=== PATIENT | male | born 1940 | race Caucasian/White ===

== ENCOUNTER → 2019-04-01 | Outpatient (CLI) | payer OTHER, BC ==
[~2019-04-01] VITALS: Ht 177.8 cm; Wt 97.5 kg
[~2019-04-01] MED LIST: ACTOS 45 MG45 MG PO; ADVAIR 250-501 EACH INH; AMLODIPINE BESY10 MG PO; ARICEPT23 MG PO; ASPIR 8181 MG PO; ASTEPRO205.5 MCG/ NASAL; AZELASTINE137 MCG/0. NASAL; BACLOFEN 10MG T10 MG PO; CRESTOR20 MG PO; DICLEGIS DR 101 EACH PO; FISH OIL 1,001000 M2 PO; FLOMAX0.4 MG PO; FLONASE 0.05%50 MCG NASAL; GLUCAGEN1 MG/1 ML INJECTION; GLUCOPHAGE1000 MG PO; HUMALOG100 UNIT/1 SUBQ; LANTUS100 UNIT/M SUBQ; LISINOPRIL-HCT1 EAC2 PO; PROSCAR 5MG TABL5 MG PO; TRAVATAN Z2.5 ML OPHTHALMIC; VICTOZA0.6 MG/0.1 SUBQ; VOLTAREN GEL 1100 G2 TOP
--- NOTE | ~2019-04-01 | HPC ---
[facility] [address] [address] PAIN MANAGEMENT CONSULTATION Name: MIKE LOCK Room #: REG [facility] MMarisabel.#: [id number] Admission: 04/01/19 ������������������ Attend Phys: Edward De Santiago DO Discharge: ������������������ Date of : 40 Report #: [id number] THIS REPORT FOR: //name// CC: Mary Anne Velasco DATE OF SERVICE: 04/01/2019 REFERRING PHYSICIAN: FRANKY Cruz. CHIEF COMPLAINT: Low back pain, bilateral lower extremity pain and paresthesias. HISTORY OF PRESENT ILLNESS: As you know, the patient is a 78-year-old male referred to our clinic by his neurosurgery team for evaluation for lumbar radiculopathy. The patient indicates his pain began 10/29/1979. He has been "just dealing with it." He recently has had an exacerbation of symptoms which sent the patient to evaluation with nurse practitioner, Mary Anne Valdes at [facility]. He was seen in consultation, advised to trial a lumbar epidural injection under fluoroscopic guidance with our clinic. He was subsequently referred to trial that today. He indicates today his pain is continuous, describes the pain as aching, places current pain score 2-3/10, daily average of 2-3/10, worst pain has been 7-8/10. He states that pain is exacerbated with "longer durations on his feet." His pain improves with Aleve, utilizing a recliner, placing heat pads on his back and lying down. He has been referred to our service to discuss possible lumbar epidural injection under fluoroscopic guidance to address lumbar radiculopathy. PAST MEDICAL HISTORY: 1. Diabetes mellitus type 2. 2. Bleeding tendencies. 3. Asthma. 4. Hypertension. 5. Degenerative joint disease. 6. Osteoarthritis. 7. History of bladder cancer. 8. Dyslipidemia. 9. Seasonal allergies. 10. Memory issues. PAST SURGICAL HISTORY: 1. Pelvic surgery in 1979. 2. Surgeries for bladder cancer in 1997 through 1999. 3. Herniated disk repair, 2016. [facility] [address] [place] [address] PAIN MANAGEMENT CONSULTATION Name: MIKE LOCK Room #: REG ELIZABETH Anderson#: [id number] Admission: 04/01/19 ������������������ Attend Phys: Edward De Santiago DO Discharge: ������������������ Date of : 40 Report #: [id number] 4. Cataract surgery. SOCIAL HISTORY: The patient denies tobacco, IV or illicit drug use. He admits to occasional alcohol beverage. 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 He is not receiving workmen's compensation, nor is he trying to obtain disability benefits. He is unaccompanied at today's visit. REVIEW OF SYSTEMS: Positive for weight gain, wearing corrective eyewear, cataracts, hearing loss with tinnitus, sinus problems, sore throat, voice changes, shortness of breath with walking or lying flat, frequent coughs, asthma, wheezing, frequent urination, nocturia, change of force or stream urination, incontinence and dribbling to urine, hair and nail changes, varicose vein, numbness and tingling sensations, tremors, diabetes mellitus type 2 insulin-dependent, excessiv thirst and urination, low back pain that is chronic in nature. All other review of systems negative per 12-point review of systems other than those listed in history of present illness. Pain impact score of 7/70 indicating minimal interference of daily activities secondary to pain. ALLERGIES: QUININE. CURRENT MEDICATIONS: Rosuvastatin, GlucaGen, diclofenac, insulin, Victoza, metformin, aspirin, pioglitazone, amlodipine, azelastine, Advair, Travatan, fluticasone, benazepril, tamsulosin, finasteride, omega-3 fish oil. IMAGING: MRI lumbar spine shows L1-L2 with focal left paramedian disk osteophyte complex flattening the left thecal sac. No central canal stenosis. L2-L3, diffuse annular bulge and facet arthropathy, mild spinal stenosis. L3-L4, diffuse annular disk bulge, lateral foraminal narrowing on the right with compression of the exiting L3 nerve root, mild to moderate central canal stenosis. L4-L5, bilateral facet arthrosis, buckling of ligamentum flavum, diffuse annular disk bulge, severe spinal stenosis. L5-S1, there is no central canal stenosis or foraminal narrowing. PQRS: The patient has known arthritic changes of the lumbar spine, bilateral hips and knees. No rheumatoid arthritis. He is placing pain intensity 2-3/10 while seated, 7-8/10 while walking and ambulating. He is not a fall risk, has not had a fall in the last 3 months. He is not on blood thinners. He is treated for hypertension. He is not on chronic opioids, has a low opiate addiction potential. His pain impact score is 7/70, minimal interference of daily activities secondary to pain. PHYSICAL EXAMINATION: VITAL SIGNS: Blood pressure 165/64, pulse 92, respiratory rate 16 and unlabored. The patient is 97% on room air. Height 5 feet 10 inches tall, [facility] [address] [place] [address] PAIN MANAGEMENT CONSULTATION Name: MIKE LOCK Room #: REG CLJan Anderson#: [id number] Admission: 04/01/19 ������������������ Attend Phys: Edward De Santiago DO Discharge: ������������������ Date of : 40 Report #: [id number] weight 215 pounds, BMI calculated 30.8. GENERAL: Well-developed, well-nourished, well-hydrated 78-year-old male, appearing stated age, placing current pain score at 2-8/10 depending on activity. HEENT: Normocephalic, atraumatic. Pupils equal, round, reactive to light. Extraocular muscles are intact. Sclerae nonicteric without injection. NEUROLOGIC: Cranial nerves 2-12 grossly intact. LUNGS: Clear. No wheeze, rhonchi or rales. CARDIOVASCULAR: Regular. No appreciable gallop or rub. ABDOMEN: Soft, nontender, nondistended. EXTREMITIES: No clubbing, no cyanosis, no edema. MUSCULOSKELETAL: The patient has got normal gait and tandem walk. He has no focal loss of sensation. He is intact to light touch from L1 through S2 dermatomes. Seated straight leg raising negative. Supine straight leg raising negative. KRISTIAN'S test negative. Modified Gaenslen's positive for axial low back pain. Ankle clonus negative. Babinski is negative. Muscle bulk and tone is symmetrical in comparing left lower extremity to right. He does have some decreased reflexes in the lower extremities, but they are symmetrical at patella and Achilles. ASSESSMENT: 1. Severe central canal stenosis. 2. Displacement of lumbar intervertebral disk with radiculopathy. 3. Chronic lumbar radiculopathy. 4. Lumbosacral spondylosis with radiculopathy. 5. Neuroforaminal stenosis of lumbar spine. 6. Facet arthropathy of the lumbar spine. 7. Chronic intractable pain. PLAN: 1. Based on today's physical exam and history the patient has provided, the description the patient uses in regards to pain as well as the location of symptoms, likely source of the patient's pain is lumbar radiculopathy. Based on his recent MRI, the lumbar radicular symptoms were secondary to severe spinal canal stenosis to the L4-L5 level. The patient has been advised of treatment options in the past and we have reiterated those today, the following was discussed with the patient. We discussed the treatment options include physical therapy, stretching exercise, core strengthening. We discussed medication management, utilizing a neuropathic pain medication and consistent nonsteroidal anti-inflammatory. We discussed lumbar epidural injection under fluoroscopic guidance for which the patient was referred to our clinic. We discussed spinal cord stimulator therapy and ultimately surgical decompression. After reviewing the risks and benefits of all proposed treatment options, the patient chose to move forward with a lumbar epidural [place] [address] PAIN MANAGEMENT CONSULTATION Name: CARLLEIMIKE Room #: REG LEIZABETH Anderson#: [id number] Admission: 04/01/19 ������������������ Attend Phys: Edward De Santiago DO Discharge: ������������������ Date of : 40 Report #: [id number] 2. The patient has been advised the risks and benefits of a lumbar epidural injection. These risks include but are not necessarily limited to bleeding, bruising, infection, worsening of pain, no relief of pain, temporary or permanent muscle weakness, temporary or permanent nerve damage, possible paralysis, post-dural puncture headache and . The patient states he understood and wished to proceed. 3. No medication changes made at today's visit. The patient will continue current medical therapy as previously prescribed. 4. We will see the patient back in followup visit in approximately 1 month. At that time, review the efficacy of today's epidural injection and determine if next in the series might be recommended. 5. We wish to thank nurse practitioner, Wendy Valdes, for the referral of the patient to our clinic. We will keep you apprised of his response to treatment as we address lumbar radicular symptoms secondary to spinal stenosis. Again, we wish to thank you for the opportunity to see the patient in consultation. ��������������������������������������������� ���������������������������������������� By: ��������������������������������������������� [id number] Edward De Santiago DO /nt
--- NOTE | ~2019-04-01 | P ---
[facility] [place] [address] [place] [address] PROCEDURE REPORT Name: MIKE LOCK Room #: REG Jan MMarisabel.#: [id number] Admission: 04/01/19 ������������������ Attend Phys: Edward De Santiago DO Discharge: ������������������ Date of : 40 Report #: [id number] THIS REPORT FOR: //name// CC: Mary Anne Velasco DATE OF SERVICE: 04/01/2019 PROCEDURE NOTE DESCRIPTION OF PROCEDURE: L5-S1 paramedian epidural steroid injection under fluoroscopic guidance. After obtaining written consent, the patient was taken back to fluoroscopy suite, placed in prone position with pillow under abdomen to decrease lumbar lordosis. Skin overlying lumbosacral area was then prepped and draped in aseptic fashion. The L5-S1 vertebral interspace identified by AP fluoroscopy. Skin and subcutaneous tissue overlying target site of injection anesthetized with 3 mL of 1% lidocaine. A 20-gauge 3-1/2 inch Tuohy needle advanced under fluoroscopic guidance towards the epidural space using a paramedian approach. Epidural space identified using loss of resistance to air technique. After negative aspiration for heme or cerebrospinal fluid, 1 mL of Omnipaque injected. Lumbar epidurogram confirmed using both AP and lateral fluoroscopy. After negative aspiration for heme or cerebrospinal fluid, 5 mL of a solution containing 2 mL 40 mg per mL, 80 mg total triamcinolone along with 3 mL lidocaine 1% injected slowly. Needle then retracted approximately half way, flushed with 1 mL of 1% lidocaine and then removed. Sterile bandage placed over injection site. No new motor deficits present in lower extremity following procedure. The patient tolerated procedure well, carefully escorted to recovery room in stable condition. No apparent complications. After meeting discharge criteria, the patient was discharged home. ��������������������������������������������� ���������������������������������������� By: ��������������������������������������������� [id number] Edward De Santiago DO /nt
[2019-04-01 11:26] VITALS: BP 165/64
--- NOTE | 2019-04-01 11:27 | NUR ---
Pain Clinic Assessment: 1. History of Osteoarthritis: Left Lower Extremity Right Lower Extremity SPINAL History of Rheumatoid Arthritis: Not Applicable 2. Height: 5 ft. 10 in. 177.8 cm. Weight: 215.0 lb. oz. 97.524 kg. Patient's BMI: 30.8 3. Vital Signs: BP: 165/64 Pulse: 92 Resp: 16 Temp: 02 Sat: 97 ECG Mon: 4. Pain Intensity: 2-3 SITTING 7-8 ON FEET 5. Fall Risk: Dizziness: N Needs help standing or walking: N Fallen in the last 3 months: N Fall risk comments: 6. Patient on Blood Thinner: None 7. History of Hypertension: Y 8. Opioid Therapy greater than 6 weeks: N Opiate Contract Signed: 9. Risk Assessment Tool Provided: 10. Functional Assessment Tool: 11. Recreational Drug Use: Never Drug Type: Tobacco Use: Never Smoker Tobacco Type: Amount or Packs/day: How Many Years: Alcohol Use: Yes Frequency: Special Occasions Quant: 1
== END | disposition home or self-care (01) ==
LOC: PAIN 06:44
DX: M51.16 Intervertebral disc disorders with radiculopathy, lumbar region (principal); M48.061 Spinal stenosis, lumbar region without neurogenic claudication; M47.27 Other spondylosis with radiculopathy, lumbosacral region; M47.26 Other spondylosis with radiculopathy, lumbar region; G89.29 Other chronic pain; I10 Essential (primary) hypertension; E11.9 Type 2 diabetes mellitus without complications; J45.909 Unspecified asthma, uncomplicated; M19.90 Unspecified osteoarthritis, unspecified site; E78.5 Hyperlipidemia, unspecified; Z98.890 Other specified postprocedural states; Z79.899 Other long term (current) drug therapy; Z88.8 Allergy status to other drugs, medicaments and biological substances

== ENCOUNTER → 2019-07-01 | Outpatient (CLI) | payer OTHER, BC ==
[~2019-07-01] VITALS: Ht 177.8 cm; Wt 98.0 kg
[~2019-07-01] MED LIST changes: +ALLEGRA ALLERG180 MG PO; +AUGMENTIN 875-1 EACH PO; +IPRATROPIUM BRO30 ML NASAL; +MUCINEX D ER 11 EACH PO
[2019-07-01 10:09] VITALS: BP 156/73
--- NOTE | 2019-07-01 10:24 | NUR ---
Pain Clinic Assessment: 1. History of Osteoarthritis: B/L KNEES SPINAL B/L ANKLES History of Rheumatoid Arthritis: Not Applicable 2. Height: 5 ft. 10 in. 177.8 cm. Weight: 216.0 lb. oz. 97.977 kg. Patient's BMI: 31.0 3. Vital Signs: BP: 156/73 Pulse: 65 Resp: 16 Temp: 02 Sat: 98 ECG Mon: 4. Pain Intensity: 2-3 TODAY, 4-BOTHERSOME 5. Fall Risk: Dizziness: Y Needs help standing or walking: N Fallen in the last 3 months: N Fall risk comments: 6. Patient on Blood Thinner: None 7. History of Hypertension: Y 8. Opioid Therapy greater than 6 weeks: N Opiate Contract Signed: 9. Risk Assessment Tool Provided: 10. Functional Assessment Tool: 11. Recreational Drug Use: Never Drug Type: Tobacco Use: Never Smoker Tobacco Type: Amount or Packs/day: How Many Years: Alcohol Use: Yes Frequency: Quant:
--- NOTE | 2019-07-02 12:55 | HPC ---
[facility] [place] [address] [place] [address] PAIN MANAGEMENT CONSULTATION Name: MIKE LOCK Room #: REG Jan Garza.#: [id number] Admission: 07/01/19 Attend Phys: Edward De Santiago DO Discharge: Date of : 40 Report #: [id number] THIS REPORT FOR: //name// CC: KARSON Velasco MD DATE OF SERVICE: 07/01/2019 REFERRING NURSE PRACTITIONER: Karson Valdes APRN PRIMARY CARE PROVIDER: Kaylen Velasco MD CHIEF COMPLAINT: Low back pain, bilateral lower extremity pain with paresthesias. HISTORY OF PRESENT ILLNESS: As you know, the patient is a 79-year-old male referred to our clinic by his neurosurgery team for evaluation of lumbar radiculopathy. He was seen in consultation per the request on 04/01/2019, underwent a lumbar epidural injection under fluoroscopic guidance with good benefit. He returns today in followup visit stating a recurrence of pain now at a level of 2-3/10, but on some days up to 10/30. He reports with the previous epidural injection improvement of greater than 50%, lasting for at least 11 weeks. He returns today in followup visit stating he has contacted his neurosurgery team to be seen by the neurosurgeon, Dr. Gary Xiao, but has been advised they would not make him an appointment. This simply does not make any clinical sense. The patient has returned to our clinic requesting assistance in having him return to see his neurosurgeon, Dr. Xiao to discuss surgical options to address his severe central canal stenosis at the L4-L5 level. The patient is not convinced that he wants to continue injections "for the remainder of his life." He does return today in followup visit requesting to undergo an epidural injection, but is also requesting assistance to be able to make an appointment with his neurosurgeon. ALLERGIES: QUININE. CURRENT MEDICATIONS: Augmentin 875/125 mg dose 1 tab p.o. every day, Mucinex D 1200 mg/120 mg once a day, fexofenadine 180 mg per day, ipratropium bromide inhaled 3 times a day. Dic[address] 10/10 mg twice a day, baclofen 10 mg 3 times a day, Lantus 100 units at 9:00 a.m., lisinopril/hydrochlorothiazide 20/25 mg once a day, pravastatin 20 mg per day, glucagon 1 mg injected, Voltaren gel applied topically up to 4 times a day, Humalog sliding scale a.c. and at bedtime. Victoza 0.6 mg subcutaneous per day, metformin 1000 mg twice a day, aspirin 81 mg per day, Actos 45 mg per day, amlodipine 10 mg per day, Astelin 1 spray each nostril per day, Advair 250/50 1 puff b.i.d., Travatan 1 drop [address] [address] PAIN MANAGEMENT CONSULTATION Name: CARLLEIMIKE Room #: REG ELIZABETH Anderson#: [id number] Admission: 07/01/19 Attend Phys: Edward De Santiago DO Discharge: Date of : 40 Report #: [id number] eye per day, Aricept 23 mg once a day, tamsulosin 0.4 mg once a day, finasteride 5 mg once a day, omega-3 fish oil 1 tab per day. SOCIAL HISTORY: The patient denies tobacco, IV or illicit drug use. Admits to occasional alcohol beverage. 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 He is not receiving workmen's compensation, accompanied by his present in room today. IMAGING: No new imaging available. PQRS: The patient has known arthritic changes of the lumbar spine, bilateral hips and knees. No rheumatoid arthritis. He is placing current pain anywhere from 2-4/10 depending on activity. He is not a fall risk, has not had a fall in last 3 months, not on blood thinners. He is treated for hypertension. He is not on chronic opioids, has a low opiate addiction potential. Pain impact score is 7/70 indicating mild interference of daily activities secondary to pain. PHYSICAL EXAMINATION: VITAL SIGNS: Blood pressure 156/73, pulse 65, respiratory rate 16 and unlabored. The patient is 98% on room air. Height 5 feet 10 inches tall, weight 216 pounds, BMI calculated 31.0. GENERAL: Well-developed, well-nourished, well-hydrated 79-year-old male appearing stated age, pain is rated today 2-4/10. HEENT: Normocephalic, atraumatic. Pupils equal, round, and reactive to light. Extraocular muscles are intact. Sclerae nonicteric without injection. NEUROLOGIC: Cranial nerves 2 through 12 grossly intact. Speech fluent. EXTREMITIES: Show no clubbing, no cyanosis, and no edema. MUSCULOSKELETAL: Lower extremity strength is symmetrical. He has no focal loss of sensation: Normal gait and tandem walk. Seated straight leg raising negative. Supine straight leg raising negative. Viji's test negative. Modified Gaenslen's positive for some axial low back pain. ASSESSMENT: 1. Symptomatic lumbar radiculopathy. 2. Severe central canal stenosis of the lumbar spine. 3. Displacement of lumbar intervertebral disk with radiculopathy. 4. Lumbosacral spondylosis with radiculopathy. 5. Lumbar degeneration. 6. Neural foraminal stenosis of lumbar spine. 7. Chronic intractable pain. PLAN: 1. The patient returns today in followup visit to undergo next in the series of epidural injections under fluoroscopic guidance. The initial epidural injection provided greater than 50% improvement in overall pain lasting for nearly 11 weeks. He returns today in followup visit to undergo this procedure in [address] [address] PAIN MANAGEMENT CONSULTATION Name: MIKE LOCK Room #: REG [facility] Kayla.#: [id number] Admission: 07/01/19 Attend Phys: Edward De Santiago DO Discharge: Date of : 40 Report #: [id number] preparation for a trip to [place] for the winter. The patient has been advised risks and benefits of the procedure, states understood and wished to proceed. 2. The patient indicates that he is attempting to make an appointment with Dr. Gary Xiao to be seen about possible surgical options. He states he contacted their clinic the other day and was advised he cannot make an appointment, which does not make sense. He has requested that we contact Dr. Xiao's office directly and assist in getting him an appointment with his surgeon. This should not be a problem I cannot see why the patient would not be able to see his surgeon in regards to surgical options. I did advise the patient it may be a quite protracted timeframe for the patient to make an appointment with Dr. Xiao as he is extremely dizzy and his schedule is completely full, but there is no will reason why the patient should not be able to see his neurosurgeon. The patient will contact their clinic today as we will as well to facilitate him being able to see his doctor. 3. No medication changes made at today's visit. We did provide refills of both his baclofen 10 mg 1 tab p.o. t.i.d., I gave him #90 with 3 refills. I also gave a refill of his Chavo DR 05/01 one tab p.o. b.i.d., #60 with 3 refills. This is a 4 months' worth of medication. 4. We will see the patient back in followup visit on an as needed basis for possible next in the series of epidural injections. PROCEDURE NOTE: DESCRIPTION OF PROCEDURE: L5-S1 parasagittal epidural steroid injection under fluoroscopic guidance. This is the 2nd procedure of the 1st series that the patient is undergoing. After obtaining written consent, the patient was taken back to the fluoroscopy suite, placed in a prone position with pillow under the abdomen to decrease lumbar lordosis. The skin overlying the lumbosacral area was then prepped and draped in aseptic fashion. The L5-S1 vertebral interspace was then identified by AP fluoroscopy. The skin and subcutaneous tissue overlying the target site of injection was anesthetized with 3 mL 1% lidocaine. A 20-gauge 3-1/2 inch Tuohy needle was then advanced under fluoroscopic guidance towards the epidural space using a parasagittal approach. The epidural space was identified using loss of resistance to air technique. After negative aspiration for heme or cerebrospinal fluid, a total of 1 mL of Omnipaque was injected. A lumbar epidurogram was confirmed using both AP and lateral fluoroscopy. After negative aspiration for heme or cerebrospinal fluid, 5 mL of solution containing 2 mL, 40 mg per mL, 80 mg of total of triamcinolone along with 3 mL of lidocaine 1% was injected in increments. Contrast spread was noted posterior epidural space. The needle was then retracted approximately half way and needle tract flushed with 1 mL of 1% lidocaine. Needle was then removed. [address] [address] PAIN MANAGEMENT CONSULTATION Name: MIKE LOCK [id number] Admission: 07/01/19 Attend Phys: Edward De Santiago DO Discharge: Date of : 40 Report #: [id number] There were no apparent sensory or motor deficits in the lower extremity following the procedure. A sterile bandage was placed over the injection site. The heart rate, pulse, oximetry and blood pressure were continuously monitored after the procedure. There were no apparent complications. The patient tolerated the procedure well and was carefully escorted to the recovery room in stable condition. There were no apparent complications. After meeting discharge criteria, the patient was then discharged home. <ELECTRONICALLY SIGNED> By: Edward De Santiago DO 07/02/19 [id number] Edawrd De Santiago DO /nt
== END | disposition home or self-care (01) ==
LOC: PAIN 06:39
DX: M51.16 Intervertebral disc disorders with radiculopathy, lumbar region (principal); M48.061 Spinal stenosis, lumbar region without neurogenic claudication; M47.27 Other spondylosis with radiculopathy, lumbosacral region; G89.29 Other chronic pain; I10 Essential (primary) hypertension; M19.90 Unspecified osteoarthritis, unspecified site; Z98.890 Other specified postprocedural states; Z88.8 Allergy status to other drugs, medicaments and biological substances; Z79.899 Other long term (current) drug therapy; Z79.82 Long term (current) use of aspirin